=== PATIENT | male | born 1985 ===

== ENCOUNTER 2016-10-13 23:46 | Emergency (ER) | payer OTHER ==
[2016-10-13 23:52] VITALS: BMI 31.4
[2016-10-14 00:12] VITALS: RESP 17; TEMP 97.9; O2SAT 98
[2016-10-14 00:44] LABS: ADD MANUAL DIFF? NO
[2016-10-14 00:54] LABS: BASO # 0.02 K/mm3 (0.0-2.0); BASO % 0.3 % (0.0-3.0); EOS # 0.1 (0.0-0.7); EOS % 1.9 % (1.5-5.0); GRAN # 4.29 (1.4-6.5); GRAN % 58.1 % (50.0-68.0); HEMATOCRIT 37.8 % (42.0-52.0); LYMPH # 2.5 (1.2-3.4); LYMPH % 33.5 % (22.0-35.0); MEAN CELL VOLUME 82.2 fL (80.0-105.0); MEAN CORPUSCULAR HEMOGLOBIN 29.1 pg (25.0-35.0); MEAN CORPUSCULAR HGB CONC 35.4 g/dl (31.0-37.0); MEAN PLATELET VOLUME 9.4 fl (7.0-11.0); MONO # 0.5 (0.1-0.6); MONO % 6.2 % (1.0-6.0); PLATELET COUNT 220 10^3/uL (120.0-450.0); RED CELL DISTRIBUTION WIDTH 13.5 % (11.5-14.5); WHITE BLOOD COUNT 7.4 10^3/ul (4.5-11.0)
[2016-10-14 00:59] LABS: ALB/GLOB RATIO 1.5 (1.1-1.8); ALKALINE PHOSPHATASE 49 U/L (38-133); ALT/SGPT 40 U/L (7-56); AST/SGOT 28 U/L (15-59); BILIRUBIN,TOTAL 0.8 mg/dL (0.2-1.3); BLOOD UREA NITROGEN 13 mg/dL (7-21); CALCIUM 9.5 mg/dL (8.4-10.5); CARBON DIOXIDE 30 mmol/L (21-33); CHLORIDE 100 mmol/L (98-107); GFR AFRICAN-AMERICAN > 60; GLUCOSE,RANDOM 96 mg/dL (70-110); POTASSIUM 3.1 mmol/L (3.6-5.0); SODIUM 137 mmol/L (132-148); TOTAL PROTEIN 7.3 g/dL (5.8-8.3)
[2016-10-14 01:20] LABS: TROPONIN I < 0.01 ng/mL
--- NOTE | 2016-10-14 01:48 | ED PDOC ---
Arrival/HPI - General Chief Complaint: Chest Pain Time Seen by Provider: 10/14/16 00:23 Historian: Patient - History of Present Illness Narrative History of Present Illness (Text): 10/14/16 01:00 A 31 year old male, who denies any past medical history, presents to the emergency department complaining of left sided chest pain for the past 3-4 days. Patient notes chest pain radiates to left arm and is constant. Patient denies any fever, cough, leg swelling or any other complaints at this time. Time/Duration: < week Symptom Onset: Sudden Symptom Course: Unchanged Activities at Onset: Rest Context: Home Associated Symptoms (Text): none Past Medical History - Provider Review Nursing Documentation Reviewed: Yes - Pulmonary Hx Respiratory Disorders: No - Neurological Hx Neurological Disorder: No - HEENT Hx HEENT Disorder: No - Renal Hx Renal Disorder: No - Endocrine/Metabolic Hx Endocrine Disorders: No - Hematological/Oncological Hx Blood Disorders: No - Integumentary Hx Dermatological Disorder: No - Musculoskeletal/Rheumatological Hx Musculoskeletal Disorders: No - Gastrointestinal Hx Gastrointestinal Disorders: No - Genitourinary/Gynecological Hx Genitourinary Disorders: No - Psychiatric Hx Psychophysiologic Disorder: No Hx Substance Use: No - Anesthesia Hx Anesthesia: No Family/Social History - Physician Review Nursing Documentation Reviewed: Yes Family/Social History: No Known Family HX Smoking Status: Never Smoked Hx Alcohol Use: No Hx Substance Use: No Allergies/Home Meds Allergies/Adverse Reactions: Allergies No Known Allergies Allergy (Verified 10/13/16 23:52) Home Medications: Home Meds Medication Instructions Recorded Confirmed No Known Home Med 10/13/16 10/13/16 Review of Systems - Physician Review All systems were reviewed & negative as marked: Yes - Review of Systems Constitutional: absent: Fevers Respiratory: absent: Cough Cardiovascular: Chest Pain Musculoskeletal: absent: Other (leg swelling) Physical Exam Vital Signs Reviewed: Yes Vital Signs Temp Pulse Resp BP Pulse Ox 10/14/16 00:11 97.9 F 71 17 120/72 98 10/13/16 23:52 98.1 F 75 15 119/72 99 Temperature: Afebrile Blood Pressure: Normal Pulse: Regular Respiratory Rate: Normal Appearance: Positive for: Well-Appearing, Non-Toxic, Comfortable Pain Distress: None Mental Status: Positive for: Alert and Oriented X 3 - Systems Exam Head: Present: Atraumatic, Normocephalic Pupils: Present: PERRL Extroacular Muscles: Present: EOMI Conjunctiva: Present: Normal Mouth: Present: Moist Mucous Membranes Neck: Present: Normal Range of Motion Respiratory/Chest: Present: Clear to Auscultation, Good Air Exchange, Other ( reproducible chest wall pain to palpation). No: Respiratory Distress, Accessory Muscle Use Cardiovascular: Present: Regular Rate and Rhythm, Normal S1, S2. No: Murmurs Abdomen: Present: Normal Bowel Sounds. No: Tenderness, Distention, Peritoneal Signs Back: Present: Normal Inspection Upper Extremity: Present: Normal Inspection. No: Cyanosis, Edema Lower Extremity: Present: Normal Inspection. No: Edema Neurological: Present: GCS=15, CN II-XII Intact, Speech Normal Skin: Present: Warm, Dry, Normal Color. No: Rashes Psychiatric: Present: Alert, Oriented x 3, Normal Insight, Normal Concentration Medical Decision Making ED Course and Treatment: 10/14/16 01:00 EKG: Ordered, reviewed, and independently interpreted the EKG. Rate : 65 BPM Rhythm : NSR Interpretation : Normal axis, Normal intervals, No acute ischemia Comparison : No previous EKG for comparison. chest xray: No acute findings, interpreted by me. - Lab Interpretations Lab Results: 10/14/16 00:27 10/14/16 00:27 Lab Results 10/14/16 00:27: Sodium 137, Potassium 3.1 L, Chloride 100, Carbon Dioxide 30, Anion Gap 10, BUN 13, Creatinine 0.9, Est GFR ( Amer) > 60, Est GFR (Non- Af Amer) > 60, Random Glucose 96, Calcium 9.5, Total Bilirubin 0.8, AST 28, ALT 40, Alkaline Phosphatase 49, Troponin I < 0.01, Total Protein 7.3, Albumin 4.4, Globulin 2.9, Albumin/Globulin Ratio 1.5 10/14/16 00:27: WBC 7.4, RBC 4.60, Hgb 13.4 L, Hct 37.8 L, MCV 82.2, MCH 29.1, MCHC 35.4, RDW 13.5, Plt Count 220, MPV 9.4, Gran % 58.1, Lymph % (Auto) 33.5, Tyler % (Auto) 6.2 H, Eos % (Auto) 1.9, Baso % (Auto) 0.3, Gran # 4.29, Lymph # 2.5, Tyler # 0.5, Eos # 0.1, Baso # 0.02 I have reviewed the lab results: Yes - RAD Interpretation Radiology Orders: 10/14/16 00:24 CHEST PORTABLE [RAD] Stat - EKG Interpretation Interpreted by ED Physician: Yes Type: 12 lead EKG - Medication Orders Current Medication Orders: Discontinued Medications Ketorolac Tromethamine (Toradol) 10 mg IVP STAT STA Stop: 10/14/16 00:25 Last Admin: 10/14/16 00:41 Dose: 10 mg - Scribe Statement The provider has reviewed the documentation as recorded by the Allie Aranda Provider Scribe Attestation: All medical record entries made by the Allie were at my direction and personally dictated by me. I have reviewed the chart and agree that the record accurately reflects my personal performance of the history, physical exam, medical decision making, and the department course for this patient. I have also personally directed, reviewed, and agree with the discharge instructions and disposition. Disposition/Present on Arrival - Present on Arrival History of DVT/PE: No History of Uncontrolled Diabetes: No Urinary Catheter: No History of Decub. Ulcer: No History Surgical Site Infection Following: None - Disposition Diagnosis: Chest pain Disposition: HOME/ ROUTINE Disposition Time: 01:39 Condition: GOOD Discharge Instructions (ExitCare): Chest Pain (ED) Additional Instructions: Please follow up with your doctor. Return to the ER for any worsening symptoms or for any other concerns. Referrals: at [facility] [Outside] - Follow up with primary
[2016-10-14 02:16] VITALS: BP 117/57; PULSE 63
--- NOTE | 2016-10-14 08:49 | RAD ---
HISTORY: cp COMPARISON: None available. TECHNIQUE: Chest, one view. FINDINGS: LUNGS: No focal consolidation. Please note that chest x-ray has limited sensitivity for the detection of pulmonary masses. PLEURA: No significant pleural effusion identified. No definite pneumothorax . CARDIOVASCULAR: The cardiomediastinal silhouette appears within normal limits of size. OSSEOUS STRUCTURES: No acute osseous abnormality identified. VISUALIZED UPPER ABDOMEN: Unremarkable. OTHER FINDINGS: None. IMPRESSION: No focal consolidation, significant pleural effusion, or definite pneumothorax identified.
--- NOTE | 2016-10-14 15:39 | CARD ---
APPROVED REPORT EKG Measurement Heart [id number] <Conclusion> Normal sinus rhythm Normal ECG
== END 2016-10-14 02:15 | disposition home or self-care (01) ==
LOC: ED 23:46
DX: R07.9 Chest pain, unspecified (principal)
CPT/HCPCS: 71010; 80053; 84484; 85025; 93005; 96374; 99283; J1885